=== PATIENT | male | born 1980 | race Caucasian/White ===

== ENCOUNTER 2023-04-10 15:07 | Outpatient (REF) | payer OTHER, SELFPAY ==
[2023-04-10 15:25] LABS: MANUAL DIFF FLAG NO
[2023-04-10 15:39] LABS: Basophils Absolute Auto 0.1 X10*3/uL (0.0-0.2); Basophils Percent Auto 1.1 % (0-2); Eosinophils Absolute Auto 0.3 X10*3/uL (0.0-0.4); Eosinophils Percent Auto 4.7 % (0-4); Hematocrit 41.2 % (42.0-52.0); Hemoglobin 13.8 g/dl (14.0-18.0); Imm Gran Abs Auto 0.03 X10*3/uL (0.00-0.03); Imm Gran Pct Auto 0.5 % (0.0-0.4); Lymphocytes Percent Auto 29.7 % (20-40); Mean Corpuscular HGB Conc 33.5 g/dl (31.0-36.0); Mean Corpuscular Hemoglobin 31.3 pg (27.0-33.0); Mean Corpuscular Volume 93.4 fL (80.0-98.0); Monocytes Absolute Auto 0.6 X10*3/uL (0.1-1.2); Monocytes Percent Auto 9.4 % (2-11); Neutrophils Absolute Auto 3.6 x10*3/uL (2.0-8.3); Neutrophils Percent Auto 54.6 % (45-73); Platelet Count 253 X10*3/uL (160-400); Red Blood Count 4.41 X10*6/uL (4.60-5.80); Red Cell Distribution Width 11.9 % (11.0-16.0); White Blood Count 6.6 X10*3/uL (4.8-10.8)
[2023-04-10 16:08] LABS: Alanine Aminotransferase 55 U/L (0-40); Albumin Level 4.4 g/dL (3.5-5.0); Alkaline Phosphatase 58 U/L (39-117); Anion Gap 10 (12-20); Aspartate Amino Transferase 32 U/L (5-37); Bilirubin Total 0.4 mg/dL (0.0-1.0); Blood Urea Nitrogen 17 mg/dL (9-16); Calcium 9.6 mg/dL (8.4-10.2); Carbon Dioxide 32 mmol/L (22-29); Chloride 101 mmol/L (96-108); Cholesterol 241 mg/dL (<200); Estimated Glomerular Filt Rate > 60; Glucose Random 105 mg/dL (60-115); HDL Cholesterol 71 mg/dL (>40); LDL Cholesterol Calculated 129 mg/dL (<100); Potassium 3.8 mmol/L (3.3-5.1); Sodium 139 mmol/L (135-145); Total Protein 7.3 g/dL (6.5-8.0); Triglycerides 206 mg/dL (<150)
[2023-04-10 16:25] LABS: TSH reflex Free T4 1.18 uIU/mL (0.32-4.0)
== END 2023-04-10 15:08 | disposition home or self-care (01) ==
LOC: HO.LAB 15:07
PROVIDERS: PCP Nurse Practitioner Family; Visit Provider Nurse Practitioner Family
DX: Z13.29 Encounter for screening for other suspected endocrine disorder (principal); Z13.220 Encounter for screening for lipoid disorders; Z13.0 Encounter for screening for diseases of the blood and blood-forming organs and certain disorders involving the immune mechanism
CPT/HCPCS: 36415; 80053; 80061; 84443; 85025

== ENCOUNTER 2023-04-15 09:44 | Outpatient (AMB) | payer OTHER, SELFPAY ==
[2023-04-15 09:45] VITALS: BP 136/90; PULSE 78; O2SAT 98; BMI 32.8
--- NOTE | 2023-04-15 09:45 | MHC.PC.OV ---
Vital Signs 04/15/23 09:45 Height 5 ft 8 in Weight 216 lb BMI 32.8 BP 136/90 H Blood Pressure Location Lt brachial Position Sitting Pulse 78 Pulse Source Pulse Oximeter Pulse Oximetry (%) 98 Oxygen Delivery Method Room Air Intake Visit Reasons: follow up Application Coordinator Required: No Allergies No Known Allergies Allergy (Verified 04/15/23 10:01) Medication List - Last Reconciled 04/15/23 by TRACY Garcia albuterol sulfate 90 mcg/actuation 2 inhalations inhalation Q6H PRN fluticasone propionate 50 mcg/actuation (Flonase Allergy Relief) 2 sprays intranasal DAILY loratadine (Claritin) 10 mg PO DAILY Tobacco use date assessed: 11/07/22 Dental Screening Dental Screen Date: 04/15/23 Did you have a dental visit in the last 12 months?: Yes Did you have a dental problem in the last 6 months where you did not have access to dental care?: No Was dental information given to patient?: Patient has dentist HPI HPI Comments History of Present Illness Details 42-year-old male patient presents today to establish care. Past medical history significant for asthma,anxiety and seasonal allergies. Patient currently follows with therapist every-other week through [employer]. Patient reports he was not fasting during his fasting blood work which revealed elevated cholesterol. Will repeat fasting labs in 3 months. Patient also reports requiring to use albuterol inhaler twice daily for shortness of breath and wheezing, patient states was previously on a controller inhaler with Flovent in the past. Will re-initiate patient on Flovent b.i.d. and order PFTs to further evaluate asthma. Patient reports left hand eczema on left thumb, pointer and middle finger. Requesting referral to websphere commerce architect as he gets recurrent episodes this. Referral entered and patient advised to use hydrocortisone cream b.i.d. x2 weeks if no improvement follow-up. [facility] Surgical History (Updated 10/05/22 @ 09:33 by TRACY Garcia) S/P surgery on nasal septum Family History Mother Dementia Father Lymphoma Brother Substance use disorder Mental health disorder Sister No problems noted. Son No problems noted. Social History (Updated 10/05/22 @ 09:36 by TRACY Garcia) Housing: House Patient Tobacco Use Status: Former Tobacco user Quit Date: 2018 Tobacco use type: Cigarette e-Cigarette/Vaping Use: Former Use service: No Current occupational status: employed Cognitive needs: No Hearing needs: No Vision needs: Yes Questionnaire PHQ-9 Over the last 2 weeks, how often have you been bothered by any of the following problems? 1. Little interest or pleasure in doing things: not at all 2. Feeling down, depressed, or hopeless: not at all 3. Trouble falling or staying asleep, or sleeping too much: not at all 4. Feeling tired or having little energy: not at all 5. Poor appetite or overeating: not at all 6. Feeling bad about yourself - or that you are a failure or have let yourself or your family down: not at all 7. Trouble concentrating on things, such as reading the newspaper or watching television: not at all 8. Moving or speaking so slowly that other people could have noticed. Or the opposite - being so fidgety or restless that you have been moving around a lot more than usual: not at all 9. Thoughts that you would be better off or of hurting yourself in some way: not at all Total score: 0 Depression Screening Interpretation: Negative Depression Screening Done: Yes 49248 - PHQ-9 Billing: Yes Source: Developed by Drs. Rafael Blair, Flor Roberts, Carmine Thomas and colleagues, with an educational jesus from [employer]. Thrive Questionnaire Date Thrive assessed: 10/05/22 AUDIT C Alcohol Use Questionnaire (AUDIT-C) 1. How often do you have a drink containing alcohol?: 4 or more times a week 2. How many drinks containing alcohol do you have on a typical day when you are drinking?: 5 or 6 3. How often do you have six or more drinks on one occasion?: Daily or almost daily Total Score: 10 KASH-7 AMB Questionnaire KASH-7 Date KASH - 7 assessed: 04/15/23 Source: Developed by Drs. Rafael Blair, Flor Roberts, Carmine Thomas and colleagues, with an educational jesus from [employer]. Review of Systems Const Denies chills, Denies fatigue, Denies fever(s) and Denies poor appetite Eyes Denies no additional complaints ENT Reports Normal hearing present Card Denies chest pain, Denies syncope, Denies rapid heart rate and Denies dyspnea Resp Denies cough and Denies dyspnea GI Denies change in stool character, Denies constipation, Denies diarrhea, Denies nausea and Denies vomiting Denies dysuria, Denies urinary frequency and Denies urinary urgency Skin/Breast Details: dry, itchy cracking skin to left hand. Neuro Reports Normal hearing present, Denies confusion and Denies syncope Psych Denies confusion Endo Denies fatigue Physical exam (Primary Care) Vital Signs: Last Vital Signs Pulse 78 04/15/23 09:45 BP 136/90 H 04/15/23 09:45 Pulse Ox 98 04/15/23 09:45 Oxygen Delivery Method Room Air 04/15/23 09:45 BMI result Body Mass Index 32.8 Tobacco/Smoking Status: Tobacco use Status Tobacco use date assessed 11/07/22 04/15/23 09:46 Patient Tobacco Use Status Former Tobacco user 04/15/23 09:46 Tobacco use type Cigarette 04/15/23 09:46 e-Cigarette/Vaping Use Former Use 04/15/23 09:46 PHQ-9: PHQ-9 Score PHQ-9: Total score 0 04/15/23 11:57 Depression Screening Interpretation: Negative Thrive Assessment: Date of Thrive Assessment Date Thrive assessed 10/05/22 04/15/23 09:46 Const General: No confusion Orientation/consciousness: No confusion HENMT Head: Yes normocephalic and Yes atraumatic Eyes Conjunctivae: conjunctivae normal Chest Chest palpation & inspection: normal inspection of the chest Resp Effort & Inspection: normal respiratory effort Auscultation: clear to auscultation bilaterally, no crackles, no rhonchi and no wheezes Cardio Rate: regular rate Rhythm: regular rhythm Heart sounds: S1 normal heart sound present and S2 normal heart sound present GI Inspection: Yes normal to inspection Skin Other: dry, white, cracking skin noted to left thumb pointer and ring finger, puritic in nature. Neuro General: No confusion Cranial nerves: Yes Normal hearing present Extrem General: No edema Office Procedures Flu Questionnaire Does the patient have a severe egg allergy?: No Does the patient have severe life threatening allergies?: No Does the patient have a fever or illness today?: No Has the patient ever had Guillain-[place] Syndrome?: No Has the patient ever had any past reaction to a flu shot?: No Immunizations flu vacc [id number] 6mos up(PF) 60 mcg(15 mcgx4)/0.5 mL IM syringe Performing Provider: TRACY Garcia [facility] Administered by: KHANG Murphy on 04/15/23 09:53 Dose Route Admin Location Dispensed Lot Number Expiration Date NDC Front Desk Manager 0.5 mL IM Left Deltoid 0.5 mL [id number] 12/01/23 72426-923-73 [employer] VIS Given Date VIS Provided VIS Publication Date 04/15/23 Single Vaccine 21 Eligibility Eligibility Date Funding Source Not [facility] Eligible 04/15/23 Private Assessment and Plan Assessment & Plan (1) Eczema: Code(s): L30.9 - Dermatitis, unspecified Plan: Patient advised to use 1% hydrocortisone cream b.i.d. x2 weeks for likely eczema stop. Patient advise if no improvement on [id number] hydrocortisone to call office and will prescribe steroid cream. Patient agreeable to plan of care. Referral entered to dermatology as requested by patient. (2) Asthma: Code(s): J45.909 - Unspecified asthma, uncomplicated Plan: Will re-initiate patient on Flovent inhaler b.i.d. and patient advised to continue use albuterol as needed for shortness of breath and wheezing. PFTs ordered. (3) Hypercholesteremia: Code(s): E78.00 - Pure hypercholesterolemia, unspecified Plan: Avoid fried foods, chicken skin, eggs, butter,margarine, pastries and?red meat. Will repeat fasting blood work in 3 months Plan Follow up in 3 months. Orders: Orders Influenza [id number] Immunization Today Z23 - Encounter for immunization PFT pulmonary function test Today J45.909 - Unspecified asthma, uncomplicated Comprehensive [place]. Panel Fast 3 Months L30.9 - Dermatitis, unspecified Lipid Panel 3 Months Z13.220 - Encounter for screening for lipoid disorders Referrals Dermatology Referral L30.9 - Dermatitis, unspecified Medications: New fluticasone propionate 44 mcg/actuation (Flovent HFA) administer with spacer 2 puffs inhalation BID 10.6 grams 0RF J45.909 - Unspecified asthma, uncomplicated Coding Level of Care Code Est Pt Level 3 (92019) Diagnoses Eczema L30.9 Asthma J45.909 Hypercholesteremia E78.00
== END 2023-04-15 10:20 | disposition home or self-care (01) ==
PROVIDERS: PCP Nurse Practitioner Family; Visit Provider Nurse Practitioner Family
DX: L30.9 Dermatitis, unspecified (principal); J45.909 Unspecified asthma, uncomplicated; E78.00 Pure hypercholesterolemia, unspecified; Z23 Encounter for immunization
CPT/HCPCS: 90471; 90686; 99213

== ENCOUNTER 2023-05-10 14:52 | Outpatient (REF) | payer OTHER, SELFPAY ==
--- NOTE | 2023-05-10 15:45 | PFT_ITS ---
Indication: Asthma Spirometry [FEV1 to FVC 80%; FEV1 4.24 L which is 114% predicted; FVC 5.31 L which is 106% predicted. There was a significant response to bronchodilators noted. Maximum voluntary ventilation 83% predicted] Lung Volumes [Total lung capacity 101% predicted; residual volume 114% predicted] Diffusion Capacity [DLCO 64% predicted] Comparisons [None] Interpretation [No obstructive nor restrictive ventilatory defects identified. There was a significant response to bronchodilators noted. Patient has a normal maximum voluntary ventilation. Lung volumes are normal except for the trend of air trapping and a mild diffusion impairment. Should correct for hemoglobin. If asthma is in the differential methacholine challenge may be helpful in assessing for hyperreactive airways. Clinical correlation warranted.] MTDD
== END 2023-05-10 14:53 | disposition home or self-care (01) ==
LOC: HO.RESP 14:52
PROVIDERS: PCP Nurse Practitioner Family; Visit Provider Nurse Practitioner Family
DX: J45.909 Unspecified asthma, uncomplicated (principal)
CPT/HCPCS: 94010; 94727; 94729

== ENCOUNTER → 2023-05-10 15:45 | Outpatient (BNV) | payer OTHER, SELFPAY | PROVIDERS: PCP Nurse Practitioner Family; Visit Provider Hospitalist | DX: J45.909 Unspecified asthma, uncomplicated (principal) | CPT/HCPCS: 94060; 94727; 94729 ==

== ENCOUNTER 2023-11-20 14:57 | Outpatient (AMB) | payer OTHER, SELFPAY ==
--- NOTE | 2023-11-20 15:02 | MHC.PC.OV ---
Vital Signs 11/20/23 15:04 Height 5 ft 8 in Weight 215 lb 8 oz BMI 32.8 BP 110/72 Blood Pressure Location Lt brachial Position Sitting Pulse 104 H Pulse Source Pulse Oximeter Pulse Oximetry (%) 98 Oxygen Delivery Method Room Air Intake Visit Reasons: annual exam- establish [facility] Intake Note: Patient is here today for a physical and [facility] from [employer] Required: No Tipple Boss: Not Required per policy Accompanied by: Self / Same As Patient Allergies No Known Allergies Allergy (Verified 11/20/23 16:27) Medication List - Last Reconciled 11/20/23 by Cristopher Burnham MD albuterol sulfate 90 mcg/actuation 2 inhalations inhalation Q6H PRN fluticasone propionate 44 mcg/actuation 2 puffs inhalation BID fluticasone propionate 50 mcg/actuation (Flonase Allergy Relief) 2 sprays intranasal DAILY loratadine (Claritin) 10 mg PO DAILY Tobacco use date assessed: 11/20/23 Dental Screening Dental Screen Date: 11/20/23 Did you have a dental visit in the last 12 months?: Yes Did you have a dental problem in the last 6 months where you did not have access to dental care?: No Was dental information given to patient?: Patient has dentist HPI annual exam- establish [facility] HPI Details 43-year-old male presents to the office requesting an annual physical. I will be taking over his care as his provider has left the practice. Patient has history of allergies, allergic rhinitis and mild asthma. Patient requests a refill on his Flovent and albuterol. Able to function and do all activities of daily living. Patient has quit smoking and this has improved his breathing. Not compliant with diet and exercise. [facility] Medical History (Updated 11/20/23 @ 16:32 by Cristopher Burnham MD) Asthma Eczema Seasonal allergies Surgical History S/P surgery on nasal septum Family History Mother Dementia Father Lymphoma Brother Substance use disorder Mental health disorder Sister No problems noted. Son No problems noted. Social History Housing: House Alcohol intake: current Alcohol intake frequency: 0-2 drinks per day Patient Tobacco Use Status: Former Tobacco user Tobacco use type: Cigarette e-Cigarette/Vaping Use: Former Use Second Hand Smoke Exposure: Yes service: No Current occupational status: employed Cognitive needs: No Hearing needs: No Vision needs: Yes Questionnaire PHQ-9 Over the last 2 weeks, how often have you been bothered by any of the following problems? 1. Little interest or pleasure in doing things: not at all 2. Feeling down, depressed, or hopeless: not at all 3. Trouble falling or staying asleep, or sleeping too much: not at all 4. Feeling tired or having little energy: not at all 5. Poor appetite or overeating: not at all 6. Feeling bad about yourself - or that you are a failure or have let yourself or your family down: not at all 7. Trouble concentrating on things, such as reading the newspaper or watching television: not at all 8. Moving or speaking so slowly that other people could have noticed. Or the opposite - being so fidgety or restless that you have been moving around a lot more than usual: not at all 9. Thoughts that you would be better off or of hurting yourself in some way: not at all Total score: 0 Depression Screening Interpretation: Negative Depression Screening Done: Yes Source: Developed by Drs. Rafael Blair, Flor Roberts, Carmine Thomas and colleagues, with an educational ejsus from [employer]. Thrive Questionnaire Date Thrive assessed: 11/20/23 I am a: Patient What is your living situation today?: I have a steady place to live Within the past 12 months, did the food you bought not last and you didn't have the money to get more?: Never true Within the past 12 months, did you worry whether your food would run out before you got money to buy more?: Never true Do you have trouble paying for medicines?: No Do you have trouble getting transportation to medical appointments?: No Do you have trouble paying your heating and electricity bill?: No Do you have trouble taking care of your child, family member or friend?: No Do you have trouble with day-to-day activities such as bathing, preparing meals, shopping, managing finances, etc.?: No Are you currently unemployed and looking for a job?: No Are you interested in more education?: No Currently or been in a relationship where the following occur: no concerns reported THRIVE Score: 0 AUDIT C Alcohol Use Questionnaire (AUDIT-C) 1. How often do you have a drink containing alcohol?: 4 or more times a week 2. How many drinks containing alcohol do you have on a typical day when you are drinking?: 1 or 2 Total Score: 4 KASH-7 AMB Questionnaire KASH-7 Date KASH - 7 assessed: 11/20/23 Feeling nervous, anxious, or on edge: 1 = Several days (Has a therapist) Not being able to stop or control worryin = Not at all Worrying too much about different things: 0 = Not at all Trouble relaxin = Not at all Being so restless that it is hard to sit still: 0 = Not at all Becoming easily annoyed or irritable: 0 = Not at all Feeling afraid as if something awful might happen: 0 = Not at all Total KASH-7 score (0-4 normal; 5-9 mild; 10-14 moderate; 15-21 severe): 1 Source: Developed by Drs. Rafael Blair, Flor Roberts, Carmine Thomas and colleagues, with an educational jesus from [employer]. Physical exam (Primary Care) Vital Signs: Last Vital Signs Pulse 104 H 11/20/23 15:04 BP 110/72 11/20/23 15:04 Pulse Ox 98 11/20/23 15:04 Oxygen Delivery Method Room Air 11/20/23 15:04 Care Plan Goal for BP management: Blood pressure is in range. BMI result Body Mass Index 32.8 Tobacco/Smoking Status: Tobacco use Status Tobacco use date assessed 11/20/23 11/20/23 15:10 Patient Tobacco Use Status Former Tobacco user 11/20/23 15:10 Tobacco use type Cigarette 11/20/23 15:10 e-Cigarette/Vaping Use Former Use 11/20/23 15:10 PHQ-9: PHQ-9 Score PHQ-9: Total score 0 11/20/23 15:10 Depression Screening Interpretation: Negative Thrive Assessment: Date of Thrive Assessment Date Thrive assessed 11/20/23 11/20/23 15:10 Currently or been in a relationship where the following occur: no concerns reported Const General: cooperative and healthy appearing Nutritional Appearance: well nourished Orientation/consciousness: patient oriented x3 Limitations: no limitations HENMT Head: Yes normal to inspection Eyes General: appearance normal, both eyes and all related structures Neck Neck: Yes normal visual inspection Chest Chest palpation & inspection: normal palpation of entire chest wall Resp Effort & Inspection: normal respiratory effort Neuro General: patient oriented x3 Assessment and Plan Assessment & Plan (1) Hypercholesteremia: Code(s): E78.00 - Pure hypercholesterolemia, unspecified (2) Eczema: Code(s): L30.9 - Dermatitis, unspecified (3) Seasonal allergies: Code(s): J30.2 - Other seasonal allergic rhinitis (4) Asthma: Code(s): J45.909 - Unspecified asthma, uncomplicated (5) Annual physical exam: Code(s): Z00.00 - Encounter for general adult medical examination without abnormal findings Plan: Blood work has been ordered. Orders: Orders Basic Metabolic Panel Today E78.00 - Pure hypercholesterolemia, unspecified Lipid Panel Today E78.00 - Pure hypercholesterolemia, unspecified Liver Panel Today E78.00 - Pure hypercholesterolemia, unspecified UA and rflx microscopic Today E78.00 - Pure hypercholesterolemia, unspecified Thyroid Stimulating Hormone Today E78.00 - Pure hypercholesterolemia, unspecified Medications: New albuterol sulfate 90 mcg/actuation 2 inhalations inhalation Q6H PRN 1 ea 2RF shortness of breath fluticasone propionate 50 mcg/actuation (Flonase Allergy Relief) administer into each nostril 2 sprays intranasal DAILY 16 grams 1RF Refilled fluticasone propionate 44 mcg/actuation administer with spacer 2 puffs inhalation BID 10.6 grams 0RF J45.909 - Unspecified asthma, uncomplicated Coding Level of Care Code Est Pt Prev Care 40-64y(79628) Diagnoses Hypercholesteremia E78.00 Eczema L30.9 Seasonal allergies J30.2 Asthma J45.909 Annual physical exam Z00.00
[2023-11-20 15:04] VITALS: BP 110/72; PULSE 104; O2SAT 98; BMI 32.8
== END 2023-11-20 17:28 | disposition home or self-care (01) ==
PROVIDERS: PCP Internal Medicine; Visit Provider Internal Medicine
DX: Z00.00 Encounter for general adult medical examination without abnormal findings (principal); J45.909 Unspecified asthma, uncomplicated; E78.00 Pure hypercholesterolemia, unspecified; L30.9 Dermatitis, unspecified
CPT/HCPCS: 99396

== ENCOUNTER 2024-12-26 07:46 | Outpatient (REF) | payer OTHER, SELFPAY ==
[2024-12-26 08:49] LABS: Hematocrit 40.9 % (42.0-52.0); Hemoglobin 14.5 g/dl (14.0-18.0); Mean Corpuscular HGB Conc 35.5 g/dl (31.0-36.0); Mean Corpuscular Hemoglobin 31.9 pg (27.0-33.0); Mean Corpuscular Volume 89.9 fL (80.0-98.0); NRBC Abs Auto 0.000 X10*3/uL (0.0-0.012); NRBC Pct Auto 0.0 /100WBC (0.0-0.2); Platelet Count 238 X10*3/uL (160-400); Red Blood Count 4.55 X10*6/uL (4.60-5.80); White Blood Count 4.6 X10*3/uL (4.8-10.8)
[2024-12-26 09:20] LABS: Alanine Aminotransferase 113 U/L (0-40); Albumin Level 4.8 g/dL (3.5-5.0); Alkaline Phosphatase 55 U/L (39-117); Anion Gap 15 (12-20); Aspartate Amino Transferase 68 U/L (5-37); Blood Urea Nitrogen 10 mg/dL (9-16); Calcium 9.5 mg/dL (8.4-10.2); Carbon Dioxide 25 mmol/L (22-29); Chloride 105 mmol/L (96-108); Cholesterol 228 mg/dL (<200); Estimated Glomerular Filt Rate > 60; HDL Cholesterol 72 mg/dL (>40); Potassium 4.4 mmol/L (3.3-5.1); Sodium 141 mmol/L (135-145); Total Protein 7.0 g/dL (6.5-8.0); Triglycerides 155 mg/dL (<150)
[2024-12-26 09:37] LABS: Thyroid Stimulating Hormone 2.06 uIU/mL (0.32-4.0)
[2024-12-26 09:58] LABS: Appearance Urine Clear; Glucose Urine UA Negative (Negative); PH 5.5 (5.0-9.0); Specific Gravity - Urine 1.025 (1.005-1.025)
== END 2024-12-26 07:47 | disposition home or self-care (01) ==
LOC: HO.LAB 07:46
PROVIDERS: PCP Internal Medicine; Visit Provider Internal Medicine
DX: E78.00 Pure hypercholesterolemia, unspecified (principal)
CPT/HCPCS: 36415; 80048; 80061; 80076; 81003; 84443; 85027

== ENCOUNTER 2024-12-31 14:09 | Outpatient (AMB) | payer OTHER, SELFPAY ==
--- NOTE | 2024-12-31 14:13 | MHC.PC.OV ---
Vital Signs 12/31/24 14:15 Height 5 ft 8 in Weight 214 lb 6 oz BMI 32.6 BP 120/68 Blood Pressure Location Lt brachial Position Sitting Pulse 83 Pulse Source Pulse Oximeter Temp 97.1 F Temp Source Temporal Artery Scan Pulse Oximetry (%) 97 Oxygen Delivery Method Room Air Intake Visit Reasons: Annual PE Intake Note: Patient is here today for a physical. Clerk Checker Required: No Reeler Operator: Not Required per policy Accompanied by: Self / Same As Patient Allergies No Known Allergies Allergy (Verified 12/31/24 14:15) Tobacco use date assessed: 12/31/24 Dental Screening Dental Screen Date: 12/31/24 Did you have a dental visit in the last 12 months?: Yes Did you have a dental problem in the last 6 months where you did not have access to dental care?: No Was dental information given to patient?: Patient has dentist [facility] Medical History (Updated 11/20/23 @ 16:32 by Cristopher Burnham MD) Asthma Eczema Seasonal allergies Surgical History S/P surgery on nasal septum Family History Mother Dementia Father Lymphoma Brother Substance use disorder Mental health disorder Sister No problems noted. Son No problems noted. Social History Housing: House Alcohol intake: current Alcohol intake frequency: 0-2 drinks per day Patient Tobacco Use Status: Former Tobacco user Tobacco use type: Cigarette e-Cigarette/Vaping Use: Former Use Second Hand Smoke Exposure: Yes service: No Current occupational status: employed Cognitive needs: No Hearing needs: No Vision needs: Yes Questionnaire PHQ-9 Over the last 2 weeks, how often have you been bothered by any of the following problems? 1. Little interest or pleasure in doing things: not at all 2. Feeling down, depressed, or hopeless: not at all 3. Trouble falling or staying asleep, or sleeping too much: not at all 4. Feeling tired or having little energy: several days 5. Poor appetite or overeating: several days 6. Feeling bad about yourself - or that you are a failure or have let yourself or your family down: not at all 7. Trouble concentrating on things, such as reading the newspaper or watching television: not at all 8. Moving or speaking so slowly that other people could have noticed. Or the opposite - being so fidgety or restless that you have been moving around a lot more than usual: not at all 9. Thoughts that you would be better off or of hurting yourself in some way: not at all Total score: 2 Depression Screening Interpretation: Positive Depression Screening Done: Yes Source: Developed by Drs. Rafael Blair, Flor Roberts, Carmine Thomas and colleagues, with an educational jesus from [employer]. Thrive Questionnaire Date Thrive assessed: 12/31/24 I am a: Patient What is your living situation today?: I have a steady place to live Within the past 12 months, did the food you bought not last and you didn't have the money to get more?: Never true Within the past 12 months, did you worry whether your food would run out before you got money to buy more?: Never true Do you have trouble paying for medicines?: No Do you have trouble getting transportation to medical appointments?: No Do you have trouble paying your heating and electricity bill?: No Do you have trouble taking care of your child, family member or friend?: No Do you have trouble with day-to-day activities such as bathing, preparing meals, shopping, managing finances, etc.?: No Are you currently unemployed and looking for a job?: No Are you interested in more education?: No Please select the resources that you would like help with: None Currently or been in a relationship where the following occur: No concerns reported THRIVE Score: 0 AUDIT C Alcohol Use Questionnaire (AUDIT-C) 1. How often do you have a drink containing alcohol?: 4 or more times a week 2. How many drinks containing alcohol do you have on a typical day when you are drinking?: 5 or 6 3. How often do you have six or more drinks on one occasion?: Daily or almost daily Total Score: 10 KASH-7 AMB Questionnaire KASH-7 Date KASH - 7 assessed: 12/31/24 Feeling nervous, anxious, or on edge: 0 = Not at all Not being able to stop or control worryin = Not at all Worrying too much about different things: 0 = Not at all Trouble relaxin = Not at all Being so restless that it is hard to sit still: 0 = Not at all Becoming easily annoyed or irritable: 1 = Several days Feeling afraid as if something awful might happen: 0 = Not at all Total KASH-7 score (0-4 normal; 5-9 mild; 10-14 moderate; 15-21 severe): 1 Source: Developed by Drs. Rafael Blair, Flor Roberts, Carmine Thomas and colleagues, with an educational jesus from [employer]. Physical exam (Primary Care) Vital Signs: Last Vital Signs Temp 97.1 F 12/31/24 14:15 Pulse 83 12/31/24 14:15 BP 120/68 12/31/24 14:15 Pulse Ox 97 12/31/24 14:15 Oxygen Delivery Method Room Air 12/31/24 14:15 BMI result Body Mass Index 32.6 Tobacco/Smoking Status: Tobacco use Status Tobacco use date assessed 12/31/24 12/31/24 14:24 Patient Tobacco Use Status Former Tobacco user 12/31/24 14:24 Tobacco use type Cigarette 12/31/24 14:24 e-Cigarette/Vaping Use Former Use 12/31/24 14:24 PHQ-9: PHQ-9 Score PHQ-9: Total score 2 12/31/24 14:24 Depression Screening Interpretation: Positive Thrive Assessment: Date of Thrive Assessment Date Thrive assessed 12/31/24 12/31/24 14:24 Currently or been in a relationship where the following occur: No concerns reported Coding Level of Care Code Est Pt Prev Care 40-64y(45245) Diagnoses Encounter for annual physical exam Z00.00 Assessment & Plan Assessment & Plan (1) Encounter for annual physical exam: Code(s): Z00.00 - Encounter for general adult medical examination without abnormal findings Plan: History of Present Illness - The patient is a 44-year-old male presenting for a physical examination and management of asthma medication. - Asthma: The patient reports using albuterol as needed and previously used fluticasone daily, which he wishes to resume. - Gastrointestinal: Reports irregular bowel movements, improved with increased fiber intake. - Liver: Blood work shows elevated liver enzymes, prompting further investigation for hepatitis and alcohol-related liver damage. - Lipids: Blood work indicates hyperlipidemia, with a recommendation for lifestyle modifications and potential medication. - Alcohol: The patient consumes approximately six beers daily, which may contribute to liver enzyme elevation and hyperlipidemia. 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 - Exercise: Engages in aerobic exercise twice a week using an elliptical or treadmill, and plans to incorporate weight lifting. - Diet: Consumes a diet including fiber-rich foods, with occasional high-calorie meals such as pizza. - Alcohol Use: Consumes approximately six beers daily, with a history of regular alcohol use since age 23. Review of Systems - Respiratory: Reports need for daily inhaler use for asthma management. - Gastrointestinal: Reports irregular bowel movements, improved with increased fiber intake. - Neurological: Denies issues with night driving or light sensitivity. Physical Exam General: Cooperative and healthy appearing Nutritional Appearance: Well nourished Orientation/consciousness: Patient oriented x3 Limitations: No limitations Head: Normal to inspection General: Appearance normal, both eyes and all related structures Neck: Normal visual inspection Chest: Normal palpation of entire chest wall Respiratory: Patient reports using albuterol as needed and requests a prescription for fluticasone for daily use. ormal respiratory effort Neurology: Patient oriented x3. No issues reported with driving at night. Results - Labs: Elevated liver enzymes and high cholesterol levels noted. Plan 1. Asthma - Plan to resume fluticasone inhaler for daily use and continue albuterol as needed. 2. Elevated Liver Enzymes - Plan to conduct further blood work to check for hepatitis and schedule a liver ultrasound. - Advised to reduce alcohol consumption to prevent further liver damage. 3. Hyperlipidemia - Recommended lifestyle modifications including increased exercise and dietary changes. - Consideration for cholesterol-lowering medication if lifestyle changes are insufficient. 4. Alcohol Use Disorder - Discussed the need to reduce alcohol intake and explore underlying causes of consumption. Discussion Notes During the visit, we discussed the patient's asthma management, including resuming fluticasone inhaler use. We reviewed the elevated liver enzymes and the need for further testing, including hepatitis screening and a liver ultrasound. The importance of reducing alcohol consumption was emphasized to prevent further liver damage. We also addressed hyperlipidemia, recommending lifestyle changes and considering medication if necessary. The patient was advised to cut down on alcohol and explore any underlying causes of his drinking habits. Patient Instructions - Resume daily use of fluticasone inhaler and use albuterol as needed. - Follow up with blood work and liver ultrasound as scheduled. - Reduce alcohol consumption to prevent liver damage. - Implement lifestyle changes to manage cholesterol, including increased exercise and dietary adjustments. Orders: Orders US abdomen complete Today R74.8 - Abnormal levels of other serum enzymes Hepatitis A,B,C Profile Today R74.8 - Abnormal levels of other serum enzymes Medications: Refilled fluticasone propionate 44 mcg/actuation administer with spacer 2 puffs inhalation BID 10.6 grams 0RF J45.909 - Unspecified asthma, uncomplicated
[2024-12-31 14:15] VITALS: BP 120/68; PULSE 83; TEMP 36.2; O2SAT 97; BMI 32.6
--- OUTSIDE RECORDS SUMMARY | 2024-12-31 14:24 | XMS_ITS ---
Author Name [facility] Organization Unknown History of Medication Use Medication Directions Dispensed Refills Start Date End Date Stat acetaminophen (TYLENOL) 500 MG tablet Take 1-2 tablets (500-1,000 mg total) by mouth every 6 (six) hours as needed for pain (Max 6 tablets/24 hrs) for up to 7 days 07/20/2024 active albuterol (VENTOLIN HFA) 90 mcg/actuation inhaler Inhale 2 puffs every 6 (six) hours as needed for wheezing for up to 30 days 07/20/2024 active amoxicillin-clavulan ate (AUGMENTIN) 875-125 mg tablet Take 1 tablet by mouth 2 (two) times a day for 5 days 07/20/2024 active predniSONE (DELTASONE) 20 MG tablet Take 2 tablets (40 mg total) by mouth daily for 5 days 07/20/2024 active fluticasone propion-salmeteroL (Advair Diskus) 100-50 mcg/dose DISKUS Inhale 1 puff 2 (two) times a day 03/10/2024 active ProAir RespiClick 90 mcg/actuation aepb INHALE 2 PUFFS BY MOUTH EVERY 6 HOURS NEEDED FOR SHORTNESS OF BREATH 12/19/2023 07/20/2024 aborted albuterol 90 mcg/actuation inhaler Take by mouth. 04/11/2020 07/20/2024 aborted fluticasone propionate (Flonase Allergy Relief) 50 mcg/actuation nasal spray into each nostril. 04/11/2020 active Problems Problem Status Onset Date Problem Type Date of Resolution Source Acute cough active EncounterDiagnosisAct [facility] Mild intermittent asthma (HHS/HCC) active 2024-03-10 [address] [facility] Mild intermittent asthma with (acute) exacerbation (HHS/HCC) active En[facility]DiagnosisAct [facility] Seasonal allergies active 2024-03-10 [address] [facility] Arthralgia of hip active 2024-03-10 ProblemAct [facility] Piriformis syndrome active 2024-03-10 Problem[address] [facility] Need for vaccination active EncounterDiagnosisAct [facility] Nasal congestion active EncounterDiagnosisAct [facility] Acute frontal sinusitis, recurrence not specified active EncounterDiagnosisAct [facility] Immunizations Vaccine Date Source Lot Number Status Fluzone Trivalent Prefilled Syringe (18+ months) [facility]/20[facility]20[id number] completed Flucelvax Trivalent PFS IM; Without Preservative (18+ mos) 03/21/2020 [facility] [id number] completed PPD Test 10/27/2019 [facility] [id number] completed IPOL Multi-dose Vial 07/31/2019 [facility] [id number] comp leted MMR Single Dose Vial 07/31/2019 [facility] [id number] comp leted Encounters Encounter Type Encounter Reason Primary Diagnosis Location Date Ambulatory Respiratory Acute frontal sinusitis, unspecified [facility] 07/20/2024 Care Team Organization Name Specialty Phone Email Start Date End Da te [facility] CONNIE [facility] Primary [facility] 07/20/2024
== END 2024-12-31 15:07 | disposition home or self-care (01) ==
LOC: HO.HMCH 14:10
PROVIDERS: PCP Internal Medicine; Visit Provider Internal Medicine
DX: Z00.00 Encounter for general adult medical examination without abnormal findings (principal)

== ENCOUNTER 2025-02-19 09:08 | Outpatient (REF) | payer OTHER, SELFPAY ==
[2025-02-19 10:36] LABS: HBS Num1 228.95 mIU/mL (0-7.99); HBc Num1 0.06 S/CO (0.00-0.79); HBsAGNum1 0.36 S/CO (0.00-0.99); Hepatitis A Antibody IgM 0.12 Index (0-0.79); Hepatitis B Surface Antigen Negative (Negative); ~HepC Num1 0.07 S/CO (0.00-0.79); ~Hepatitis A Antibody IgM Nonreactive (Nonreactive); ~Hepatitis B Surface Antibody REACTIVE (Nonreactive); ~Hepatitis C Antibody Nonreactive (Nonreactive)
== END 2025-02-19 09:09 | disposition home or self-care (01) ==
LOC: HO.LAB 09:08
PROVIDERS: PCP Internal Medicine; Visit Provider Internal Medicine
DX: R74.8 Abnormal levels of other serum enzymes (principal)
CPT/HCPCS: 36415; 86704; 86706; 86709; 86803; 87340

== ENCOUNTER 2025-03-01 09:12 | Outpatient (REF) | payer OTHER, SELFPAY ==
--- OUTSIDE RECORDS SUMMARY | 2025-02-25 09:30 | XMS_ITS | Encounter Summary ---
Author Organization [facility] Address [address] [place] [address] Phone Care Team Providers Care Field Sales Agent Name Role Phone Cristopher Burnham MD Primary Care Provid er Reason for Visit * Reason Comments Cough Pt presents with cou gh onset 1 week Encounter Details Date Type Department Care Team (Late st Contact Info) Description 02/25/2025 9:30 AM EDT Office Visit [facility] [address] [place] [address] Filomena Small NP [address] [place] [address] [email or web address] Mild intermittent asthma with acute exacerbation (Primary Dx) Social History Tobacco Use Types Packs/Day Years Used Date Smoking Tobacco: Never Assessed Education Answer Date Recorded Are you interested in more education? Not on michael e 02/25/2025 Are you concerned about learning? Not on file 02/25/2025 No 02/25/2025 No 02/25/2025 Digital Access Answer Date Recorded No 02/25/2025 No 02/25/2025 Reliable internet access at home? Not on file 02/25/2025 Device with a working camera? Not on file Sex and Gender Information Value Date Recorded Sex Assigned at Not on file Legal Sex Male 8:48 PM EST Gender Identity Not on file Sexual Orientation Not on file documented as of this encounter Last Filed Vital Signs Vital Sign Reading Time Taken Comments Blood Pressure 136/88 02/25/2025 10:23 AM EDT Pulse 77 02/25/2025 10:23 AM EDT Temperature 36.7 C (98 F) 02/25/2025 10:23 AM EDT Respiratory Rate 16 02/25/2025 10:23 AM EDT Oxygen Saturation 95% 02/25/2025 10:23 AM EDT Inhaled Oxygen Concentration - - Weight - - Height - - Body Mass Index - - documented in this encounter Patient Instructions * Patient Instructions* Filomena Small NP - 02/25/2025 9:30 AM EDT You were diagnosed with acute bronchitis. Rest. Your body needs energy to heal. Drink plenty of fluids to stay well hydrated...water is best! Use a humidifier in your room and take warm showers. Warm salt water gargles 4x per day. Mucinex to loosen mucus. Tylenol and/or Ibuprofen for pain relief if needed. Flonase 2 sprays in each nostril once a day. Drink hot water with fresh michel, lemon, and honey. Sleep with head elevated. If your symptoms worsen or you experience difficulty breathing, report to the ED immmediately. documented in this encounter Progress Notes * Filomena Small NP - 02/25/2025 9:30 AM EDT SUBJECTIVE Patient ID: Ike Buckner is a 44 y.o. male Chief Complaint: Cough (Pt presents with cough onset 1 week) HPI: 44-year-old male with history of asthma presents with 1 week of cough and shortness of breath. Reports increased use of albuterol inhaler. Denies fever, chest pain, hemoptysis. Review of Systems Constitutional: Denies fever. HEENT: admits sinus congestion, Denies sore throat, blurry vision Respiratory: Admits shortness of breath, cough. Cardiovascular: Denies chest pain, palpitations. Gastrointestinal: Denies abdominal pain, nausea, vomiting, constipation. Endocrine: Denies neck swelling. Genitourinary: Denies frequent urination, dysuria, hematuria, difficulty urinating, flank pain. Musculoskeletal: Denies back pain. Skin: Denies rash. Neurological: Denies dizziness, headache. Hematological: Negative. Psychiatric/Behavioral: Negative. Vitals: 02/25/25 1023 BP: 136/88 BP Location: Left arm Patient Position: Sitting Cuff Size: Large Pulse: 77 Resp: 16 Temp: 36.7 ??C (98 ??F) SpO2: 95% OBJECTIVE Physical Exam Vitals signs reviewed. Constitutional: Appearance: Normal appearance. HEENT: Head: Normocephalic and atraumatic. Eyes: PERRL, conjunctiva and sclera normal. Ears: External ears normal. Canals normal. TMs normal. Nose: Endorses slight maxillary sinus tenderness noted. Mouth: No erythema, edema, exudates noted about the posterior oropharynx. Uvula midline. Neck: Trachea midline no adenopathy Cardiovascular: Regular rate and rhythm. No murmurs, rubs, or gallops noted. Pulses normal. Pulmonary: Lungs clear to auscultation. Musculoskeletal: Normal range of motion. No edema noted. Skin: No erythema, induration, calor, ecchymosis noted. Neurological: Awake, alert, orientated x3. Psychiatric: Mood and Affect: Mood normal. Behavior: Behavior normal. Thought Content: Thought content normal. Judgment: Judgment normal. Results for orders placed or performed in visit on 02/25/25 POCT COVID-19 RT-PCR/Influenza A & B/RSV ([place]) Result Value Ref Range RSV PCR Negative Negative SARS-CoV-2 (COVID-19) Negative Negative POC Influenza A PCR Negative Negative POC Influenza B PCR Negative Negative Procedure: Procedures Assessment/Plan: Diagnosis Plan 1. Mild intermittent asthma with acute exacerbation Assessment: Asthma exacerbation (mild-moderate) Differential: viral URI with asthma flare, bronchitis, pneumonia (less likely without fever or focal lung findings) Plan: Viral panel negative on exam Continue albuterol inhaler q4-6h PRN Prednisone 40 mg x 5 days Supportive care: hydration, rest Follow-up with PCP ER/return precautions: worsening SOB, wheezing not relieved with inhaler, difficulty speaking, chest pain, hypoxia documented in this encounter Plan of Treatment Not on file documented as of this encounter Procedures Procedure Name Priority Date/Time Associated Diagnosis Comments POCT COVID-19 RT-PCR/INFLUENZA A & B/RSV CEPHEID Routine 02/25/2025 9:41 AM EDT documented in this encounter Results * POCT COVID-19 RT-PCR/Influenza A & B/RSV (Cepheid) (02/25/2025 9:41 AM EDT) [facility] RSV PCR Negative Negative [facility] SARS-CoV-2 (COVID-19) Negative Negative [facility] P[facility] Influenza A PCR Negative Negative [facility] Influenza B PCR Negative Negative [facility] 02/25/2025 9:41 AM EDT 02/25/2025 10:18 AM EDT Filomena Small AUDIOVISUAL PRODUCTION SPECIALIST POINT OF CARE TEST ORDERAB LES Final Result [facility] [address] [address], [facility] [phone] documented in this encounter Visit Diagnoses Diagnosis Mild intermittent asthma with acute exacerbation- Primary documented in this encounter Care Teams Field Sales Agent Relationship Specialty Start Date End Date Cristopher Burnham MD [address] [place] [id number] PCP - General Internal Medicine 02/25/25 documented as of this encounter Additional Source Comments The information contained in this document represents components of the legal health record. It is not the complete legal health record.[facility]
--- NOTE | ~2025-03-01 | US_ITS ---
CLINICAL HISTORY: R74.8 - Abnormal levels of other serum enzymes US abdomen complete Comparison: None Provided Findings: Gallbladder unremarkable, no stone formation or wall thickening. Common duct measures 7 mm. No sonographic Tony sign. Fatty infiltration of the liver without focal abnormality. Main portal vein patent with normal direction of flow. Pancreas is unremarkable. Aorta and IVC patent and normal in caliber. The right kidney is normal, 11.1 cm in length. No focal abnormality or hydronephrosis. The left kidney is normal, 11.0 cm in length. No focal abnormality or hydronephrosis. The spleen is normal, 10.2 cm in length. No focal abnormality. Impression: Fatty infiltration of the liver Otherwise unremarkable This document has been electronically signed by: Alex Majano MD on 03/01/2025 21:16:44
--- OUTSIDE RECORDS SUMMARY | 2025-03-01 09:53 | XMS_ITS | Clinical Summary ---
Author Organization [facility] Address [address] [place] [id number] Phone Care Team Providers Care Legal Assistant Name Role Phone Cristopher Burnham MD Primary Care Provid er Allergies No known active allergies Medications predniSONE (DELTASONE) 10 MG tablet Take 4 tablets (40 mg total) by mouth daily for 5 days. 20 tablet 02/26/20 25 025 Active albuterol 90 mcg/actuation inhaler Inhale 2 puffs into the lungs 2 (two) times a day. 6.7 g 02/26/20 Active benzonatate (TESSALON) 100 MG capsule Take 1 capsule (100 mg total) by mouth 3 (three) times a day as needed for cough. 21 capsule 02/26/20 25 025 Active albuterol 90 mcg/actuation inhaler Inhale 2 puffs into the lungs 2 (two) times a day. 02/18/20 25 025 Discontinued PROAIR RESPICLICK 90 mcg/actuation AePB inhale 2 puffs by mouth every 6 hours as needed for shortness of breath 02/09/20 25 025 Discontinued Encounters Date Type Department Care Team Description 02/25/2025 9:30 AM EDT Office Visit [facility] [address] [place] [address] Filomena Small NP Mild intermittent asthma with acute exacerbation (Primary Dx) from Last 3 Months Social History Tobacco Use Types Packs/Day Years [...] on file Sexual Orientation Not on file Last Filed Vital Signs Vital Sign Reading Time Taken Comments Blood Pressure 136/88 02/25/2025 10:23 AM EDT Pulse 77 02/25/2025 10:23 AM EDT Temperature 36.7 C (98 F) 02/25/2025 10:23 AM EDT Respiratory Rate 16 02/25/2025 10:23 AM EDT Oxygen Saturation 95% 02/25/2025 10:23 AM EDT Inhaled Oxygen Concentration - - Weight - - Height - - Body Mass Index - - Plan of Treatment Health Maintenance Due Date Last Done Comments Adult Td,Tdap Booster 1982 LIPID PANEL 1982 DEPRESSION SCREENING 1994 SMOKING Hx and SMOKELESS TOBACCO SCREENING 10/17/1995 HEPATITIS C SCREENING 2000 HIV ONE-TIME SCREENING (18-65 YEARS) 2000 INFLUENZA VACCINE (#1) 2025 3, 06/10/2021, 03/21/2020, Additional history exists COVID-19 VACCINE ( season) 2025 06/21/2022, 06/10/2021, 10/14/2020, Additional history exists HEPATITIS A VACCINES Aged Out No long er eligible based on patient's age to complete this topic HIB VACCINES Aged Out No longer eligi ble based on patient's age to complete this topic MENINGOCOCCAL VACCINES (ACWY) Aged Out No longer eligible based on patient's age to complete this topic MENINGOCOCCAL VACCINES (B) Aged Out N o longer eligible based on patient's age to complete this topic PNEUMOCOCCAL VACCINES (0-49 years) Aged Out No longer eligible based on patient's age to complete this topic Medical Devices Not on file Procedures Procedure Name Priority Date/Time Associated Diagnosis Comments POCT COVID-19 RT-PCR/INFLUENZA A & B/RSV CEPHEID Routine 02/25/2025 9:41 AM EDT from Last 3 Months Results * POCT COVID-19 RT-PCR/Influenza A & B/RSV (Cepheid) (02/25/2025 9:41 AM EDT) [facility] RSV PCR Negative Negative [facility] SARS-CoV-2 (COVID-19) Negative Negative [facility] Influenza A PCR Negative Negative [facility] Influenza B PCR Negative Negative [facility] 02/25/2025 9:41 AM EDT 02/25/2025 10:18 AM EDT Filomena Small NP POINT OF CARE TEST ORDERAB LES Final Result [facility] [address] [address], [facility] [phone] from Last 3 Months Insurance [facility] HMO [facility] HMO HMO O O [facility] HMO Care Teams Legal Assistant Relationship Specialty Start Date End Date Cristopher Burnham MD [address] [place] [id number] PCP - General Internal Medicine 02/25/25 Additional Source Comments The information contained in this document represents components of the legal health record. It is not the complete legal health record.[facility]
== END 2025-03-01 09:13 | disposition home or self-care (01) ==
LOC: HO.US 09:12
PROVIDERS: PCP Internal Medicine; Visit Provider Internal Medicine
DX: R74.8 Abnormal levels of other serum enzymes (principal)
CPT/HCPCS: 76700

== ENCOUNTER → 2025-03-01 09:14 | Outpatient (BNV) | payer OTHER, SELFPAY | PROVIDERS: PCP Internal Medicine; Visit Provider Radiology Diagnostic Radiology | DX: K76.0 Fatty (change of) liver, not elsewhere classified (principal) | CPT/HCPCS: 76700 ==